=== PATIENT | male | born 2005 | race Hispanic/Latino ===

== ENCOUNTER 2023-02-19 14:42 | Emergency (ER) | payer SELFPAY ==
[2023-02-19] MEDS ORDERED: Famotidine 20 MG TAB ONE (15:19)
[2023-02-19] MEDS ORDERED: Mag-Al 1200 mg/1200 mg/30 ML UDCUP ONE (15:19)
[2023-02-19] MEDS ORDERED: Lidocaine 2% Viscous Solution 10 ML, Aluminum & Magnesium Hydroxide 30 ML SSW SCH (15:30)
== END 2023-02-19 15:55 | disposition home or self-care (01) ==
LOC: ERS 14:42
DX: K29.70 Gastritis, unspecified, without bleeding (principal)
CPT/HCPCS: 99283